=== PATIENT | female | born 2000 | race Caucasian/White ===

== ENCOUNTER 2020-06-14 10:08 | Emergency (ER) | payer BC, OTHER ==
[~2020-06-14] VITALS: Ht 160 cm; Wt 48.1 kg
--- NOTE | 2020-06-14 10:25 | ED Upper Extremity ---
General Chief Complaint: Upper Extremity Stated Complaint: SMASHED RT HAND IN CAR DOOR Source: patient Exam Limitations: no limitations History of Present Illness Date Seen by Provider: Jun 14, 2020 Time Seen by Provider: 10:15 Initial Comments Patient is a 19-year-old female who presents to the emergency department today with a chief complaint of pain to her right hand. Patient states that yesterday she slammed her hand and fingers in her car door. Patient states that initially she had numbness and tingling from her fingertips, third and fourth finger all the way up to her elbow. She states that is improved today. Patient states she has extreme difficulty with making a fist with her right hand. She is left-hand dominant. She states her tetanus shot is up-to-date. No other complaints of illness or injury although she did experience a little nausea this morning. All other review of systems reviewed and negative except as stated. Onset: yesterday Pain/Injury Location: right 3rd finger, right 4th finger Method of Injury: other (Smashed in a car door) Allergies and Home Medications Patient Home Medication List Home Medication List Reviewed: Yes Review of Systems Constitutional: no symptoms reported EENTM: no symptoms reported Respiratory: no symptoms reported Cardiovascular: no symptoms reported Gastrointestinal: nausea Genitourinary: no symptoms reported : No Musculoskeletal: joint swelling (Joint swelling to the distal interphalangeal joint of her third finger right hand), muscle pain, muscle stiffness Skin: other (Abrasions noted to her third and fourth finger of her right hand) All Other Systems Reviewed Negative Unless Noted: Yes Physical Exam Vital Signs Capillary Refill : Height, Weight, BMI Height: '" Weight: lbs. oz. kg; BMI Method: General Appearance: WD/WN, no apparent distress HEENT: PERRL/EOMI Neck: full range of motion Cardiovascular: regular rate, rhythm, no murmur Respiratory: lungs clear, normal breath sounds, no respiratory distress, no accessory muscle use Gastrointestinal: normal bowel sounds Shoulder: normal inspection, no evidence of injury Elbow/Forearm: normal inspection, no evidence of injury Wrist: Yes normal inspection, Yes no evidence of injury Hand: Right, bone tenderness (Distal interphalangeal joint of the third finger and fourth finger), limited ROM (Distal interphalangeal joint of the third and fourth finger of the right hand), soft tissue tenderness, stiffness, swelling Neurologic/Tendon: normal sensation, normal motor functions, normal tendon functions, responds to pain, no evidence tendon injury Neurologic/Psychiatric: 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 Patient evaluation today includes a physical exam. Patient has intact range of motion, strength and sensation to all the digits of her right hand although she did sustain some abrasions and has a little bit of bony tenderness with manipulation of the third and fourth digits. No instability is noted no crepitance. No active bleeding is noted. The patient states that she has a little "numbness" to the tips of the fingers but gross sensation is intact. Patient will be treated conservatively with NSAIDs, rest, ice and elevation. She is given a work note today for no use of the right hand. She verbalizes understanding of her discharge instructions all questions are sought and answered and she is stable for discharge. Departure Impression Primary Impression: Contusion of right hand including fingers Disposition: 01 HOME, SELF-CARE Condition: Stable Departure-Patient Inst. Decision time for Depature: 10:24 Referrals: [facility][1]/[facility] – [place] Patient Instructions: Contusion (DC) Add. Discharge Instructions: You can wear the Waldo wrap as needed for comfort. Elevate your right hand to reduce swelling and apply ice packs, 20 minutes at a time 2-3 times a day. Take [id number] ibuprofen, Advil or Motrin 2 to 3 pills every 6 hours with food for pain and swelling. No use of your right hand at work today but may return to full activities tomorrow. Return to the emergency room for any worsening pain, swelling, loss of function or any other emergent, concerning symptoms. Work/School Note: Family Work Note Patient Received Medical Care In the Emergency Department On: Jun 14, 2020 Patient Will Be Able to Return to Work/School On: Jun 14, 2020 Patient Restrictions: No use of right hand today at work, may return to full functional tomorrow JENNIFER HARRINGTON MD Jun 14, 2020 10:25
== END 2020-06-14 10:28 | disposition home or self-care (01) ==
LOC: ER FS 10:11
DX: S60.221A Contusion of right hand, initial encounter (principal); R11.0 Nausea; W23.1XXA Caught, crushed, jammed, or pinched between stationary objects, initial encounter
CPT/HCPCS: 99282

== ENCOUNTER → 2021-07-09 | Outpatient (CLI) | payer SELFPAY | LOC: LABNPT 15:24 | PROVIDERS: ATTEND Family Medicine | DX: R10.2 Pelvic and perineal pain (principal) | CPT/HCPCS: 87210; 87491; 87591 ==